=== PATIENT | male | born 1970 | race Two or more races ===

== ENCOUNTER 2016-10-12 21:35 | Emergency (ER) | payer MEDICAID ==
[2016-10-12] MEDS ORDERED: oxyCOD/ACETAMIN 5 MG/325 MG TABLET PO STA (22:03)
[2016-10-12] MEDS ORDERED: oxyCOD/ACETAMIN 5 MG/325 MG TABLET PO ONE (22:09)
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
[2016-10-12 23:05] VITALS: BP 147/84
== END 2016-10-12 23:05 | disposition home or self-care (01) ==
LOC: ED 21:35
DX: T23.201A Burn of second degree of right hand, unspecified site, initial encounter (principal); X10.2XXA Contact with fats and cooking oils, initial encounter; F17.200 Nicotine dependence, unspecified, uncomplicated
CPT/HCPCS: 16020; 99282; 99283; A9270

== ENCOUNTER 2018-05-08 20:22 | Emergency (ER) | payer MEDICAID ==
[2018-05-08 20:35] VITALS: BP 140/93
--- NOTE | 2018-05-08 20:41 | ED Physician Documentation ---
PD HPI CHEST PAIN - Stated complaint Stated Complaint: CP RT SIDE/NAUSEA - Chief complaint Chief Complaint: Cardiac - History obtained from History obtained from: Patient - History of Present Illness Timing - onset: Yesterday Timing - onset during: Light activity Timing - duration: Minutes Timing - details: Abrupt onset, Intermittant, Waxing and waning Pain level max: 8 Pain level now: 3 Quality: Pain Location: Right chest Radiation: Right upper extremity Improved by: Rest Worsened by: Exertion (some episodes at rest, others associated with light a ctivity. Of note, patient says the episodes yesterday were with exertion after he had been less active than usual over the past few weeks) Associated symptoms: No: Shortness of air, Diaphoresis, Nausea, Vomiting, Feeling faint / dizzy, General Weakness, Palpitations, Cough Similar symptoms before: Has not had sx before Recently seen: Not recently seen Review of Systems Constitutional: reports: Reviewed and negative Eyes: reports: Reviewed and negative Ears: reports: Reviewed and negative Nose: reports: Reviewed and negative Throat: reports: Reviewed and negative Cardiac: reports: Chest pain / pressure. denies: Palpitations, Pedal edema, Calf pain Respiratory: reports: Reviewed and negative GI: reports: Reviewed and negative : reports: Reviewed and negative Skin: reports: Reviewed and negative Musculoskeletal: reports: Reviewed and negative Neurologic: reports: Reviewed and negative PD PAST MEDICAL HISTORY - Past Medical History Past Medical History: No - Past Surgical History Past Surgical History: Yes General: Hiatal hernia repair - Present Medications Home Medications: Ambulatory Orders Medication Instructions Recorded Confirmed Amoxicillin/Potassium Clav 1 each PO BID #19 tablet 06/29/14 [Augmentin 875-125 Tablet] HYDROcod/ACETAM 5/325 [Vicodin 1 - 2 ea PO Q6H PRN #15 tablet 06/29/14 5/325] Ibuprofen [Motrin] 800 mg PO Q8H PRN #30 tablet 02/06/16 Penicillin V Potassium 500 mg PO Q6HR 10 Days tablet 02/06/16 Oxycodone HCl/Acetaminophen 1 - 2 each PO Q6H PRN #14 tablet 10/12/16 [Percocet 5-325 mg Tablet] - Allergies Allergies/Adverse Reactions: Allergies Allergy/AdvReac Type Severity Reaction Status Date / Time No Known Drug Allergies Allergy Verified 10/12/16 21:40 - Social History Does the pt smoke?: Yes Smoking Status: Current some day smoker Does the pt drink ETOH?: No Does the pt have substance abuse?: No - Immunizations Immunizations are current?: No Immunizations: TDAP >10years/unknown - POLST Patient has POLST: No PD ED PE NORMAL - Vitals Vital signs reviewed: Yes - General General: Alert and oriented X 3, No acute distress (NAD on my evaluation (lockstitch cup setter reports that during triage, patient was in obvious painful distress)), Well developed/nourished - HEENT HEENT: PERRL, EOMI - Neck Neck: Supple, no meningeal sign - Cardiac Cardiac: RRR, No murmur, No gallop, No rub - Respiratory Respiratory: No respiratory distress, Clear bilaterally - Abdomen Abdomen: Soft, Non tender - Back Back: No CVA TTP - Derm Derm: Normal color, Warm and dry - Extremities Extremities: No edema - Neuro Neuro: Alert and oriented X 3 Results - Vitals Vitals: Vital Signs - 24 hr 05/08/18 20:27 Temperature 37.2 C Heart Rate 100 Respiratory 18 Rate Blood Pressure 140/93 H O2 Saturation 98 Oxygen O2 Source Room air - EKG (time done) No standard instances Rate: Rate (enter#) (85) Rhythm: NSR, LAE [place]: Normal Intervals: Normal [place] QRS: LVH Ischemia: ST elevation c/w ischemia (V3, V4) Other comments: Other comments (RSR') - Labs Labs: Laboratory Tests 05/08/18 05/08/18 05/08/18 20:45 20:45 20:45 WBC 8.1 RBC 4.84 Hgb 14.6 Hct 44.2 MCV 91.4 MCH 30.3 MCHC 33.1 RDW 13.0 Plt Count 256 MPV 7.8 Neut # (Auto) 4.5 Lymph # (Auto) 2.7 [place] # (Auto) 0.7 Eos # (Auto) 0.1 Baso # (Auto) 0.0 Absolute Nucleated RBC 0.00 Nucleated RBC % 0.0 Sodium 137 Potassium 3.3 L Chloride 101 Carbon Dioxide 27 Anion Gap 9.0 BUN 19 Creatinine 1.0 Estimated GFR (MDRD) 80 L Glucose 116 H Calcium 8.8 Troponin I < 0.04 - Rads (name of study) chest xray Radiology: Prelim report reviewed, See rad report PD MEDICAL DECISION MAKING - ED course Complexity details: reviewed results, re-evaluated patient, considered differential, d/w patient, d/w family ED course: D/W Dr. Eason ([facility] ED), accepts transfer. Departure - Departure Disposition: 02 Transfer Acute Care Hosp Clinical Impression: STEMI (ST elevation myocardial infarction) Qualifiers: Involved coronary artery: unspecified coronary artery Qualified Code(s): I21.3 - ST elevation (STEMI) myocardial infarction of unspecified site Condition: Stable Discharge Date/Time: 05/08/18 21:33
[2018-05-08 20:57] LABS: BASOPHILS % (AUTO) 0.6 %; EOSINOPHILS # (AUTO) 0.1 10^3/uL (0.0-0.7); EOSINOPHILS % (AUTO) 1.7 %; HGB - HEMOGLOBIN 14.6 g/dL (14.0-18.0); LYMPHOCYTES # (AUTO) 2.7 10^3/uL (1.5-3.5); MEAN CORPUSCULAR HEMOGLOBIN 30.3 pg (27.0-31.0); MEAN CORPUSCULAR HGB CONC 33.1 g/dL (32.0-36.0); MEAN CORPUSCULAR VOLUME 91.4 fL (80.0-94.0); MEAN PLATELET VOLUME 7.8 fL (7.4-11.4); MONOCYTES # (AUTO) 0.7 10^3/uL (0.0-1.0); MONOCYTES % (AUTO) 9.3 %; NEUTROPHILS # (AUTO) 4.5 10^3/uL (1.5-6.6); NEUTROPHILS % (AUTO) 55.4 %; PLT - PLATELET COUNT 256 10^3/uL (130-450); RED BLOOD COUNT 4.84 10^6/uL (4.70-6.10); WHITE BLOOD COUNT 8.1 x10^3/uL (4.8-10.8)
[2018-05-08] MEDS ORDERED: NITROGLYCERIN SL 0.4 MG TABLET SL ONE (21:01)
[2018-05-08] MEDS ORDERED: METOPROLOL 5 MG/5 ML VIAL IVP STA (21:02)
[2018-05-08] MEDS ORDERED: ASPIRIN CHEW 81 MG TABLET ONE (21:02)
[2018-05-08 21:07] LABS: CALCIUM 8.8 mg/dL (8.5-10.3)
[2018-05-08] MEDS ORDERED: HEPARIN 5,000 UNIT/ML VIAL IVP STA (21:07)
[2018-05-08] MEDS ORDERED: HEPARIN 25000UNITS/500ML (D5W) 25,000 UNIT/500 ML BAG IV STA (21:07)
--- NOTE | 2018-05-08 21:14 | XRAY Report ---
Reason: chest pain Procedure Date: 05/08/2018 Accession Number: [id number] / [id number] Procedure: XR - Chest 1 View X-Ray CPT Code: 64237 FULL RESULT: EXAM: CHEST RADIOGRAPHY EXAM DATE: 05/08/2018 08:56 PM. CLINICAL HISTORY: Chest pain. COMPARISON: None. TECHNIQUE: 1 view. FINDINGS: Lungs/Pleura: No focal opacities evident. No pleural effusion. No pneumothorax. Mediastinum: Within exam limitations, the cardiomediastinal contour is normal. Other: Mild dextroscoliosis. IMPRESSION: Mild dextroscoliosis, otherwise unremarkable single view chest. RADIA
== END 2018-05-08 21:33 | disposition short-term general hospital (02) ==
LOC: ED 20:22
DX: I21.3 ST elevation (STEMI) myocardial infarction of unspecified site (principal); F17.200 Nicotine dependence, unspecified, uncomplicated
CPT/HCPCS: 36415; 71045; 80048; 84484; 85025; 93005; 96374; 96375; 99284; 99285; A9270

== ENCOUNTER 2018-05-08 21:16 | Outpatient (CLI) | payer MEDICAID | END 2018-05-08 21:17 | disposition short-term general hospital (02) | LOC: EMS 21:16 | PROVIDERS: ATTEND Surgery | DX: I21.3 ST elevation (STEMI) myocardial infarction of unspecified site (principal) | CPT/HCPCS: A0425; A0426 ==

== ENCOUNTER 2018-07-26 00:46 | Outpatient (CLI) | payer MEDICAID | END 2018-07-26 00:47 | disposition critical access hospital (66) | LOC: EMS 00:46 | PROVIDERS: ATTEND Surgery | DX: J39.2 Other diseases of pharynx (principal); R11.0 Nausea; R00.0 Tachycardia, unspecified | CPT/HCPCS: A0425; A0427; A0999 ==

== ENCOUNTER 2018-07-26 01:01 | Emergency (ER) | payer MEDICAID ==
--- NOTE | 2018-07-26 01:17 | ED Physician Documentation ---
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 He checked thermostat and found that the temperature was 76, and he felt improvement walking into another, cooler room. However, he then developed dry mouth and sensation of throat tightness and constriction. 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 Review of Systems Constitutional: reports: Sweats. denies: Fever, Chills Cardiac: denies: Chest pain / pressure, Palpitations, Pedal edema, Calf pain Respiratory: reports: Reviewed and negative GI: reports: Reviewed and negative Musculoskeletal: reports: Reviewed and negative Neurologic: reports: Reviewed and negative PD PAST MEDICAL HISTORY - Past Medical History Past Medical History: Yes Other Past Medical History: pericarditis, Brugada type II - Past Surgical History Past Surgical History: Yes General: Hiatal hernia repair - Present Medications Home Medications: Ambulatory Orders Medication Instructions Recorded Confirmed Amoxicillin/Potassium Clav 1 each PO BID #19 tablet 06/29/14 [Augmentin 875-125 Tablet] HYDROcod/ACETAM 5/325 [Vicodin 1 - 2 ea PO Q6H PRN #15 tablet 06/29/14 5/325] Ibuprofen [Motrin] 800 mg PO Q8H PRN #30 tablet 02/06/16 Penicillin V Potassium 500 mg PO Q6HR 10 Days tablet 02/06/16 Oxycodone HCl/Acetaminophen 1 - 2 each PO Q6H PRN #14 tablet 10/12/16 [Percocet 5-325 mg Tablet] - Allergies Allergies/Adverse Reactions: Allergies Allergy/AdvReac Type Severity Reaction Status Date / Time No Known Drug Allergies Allergy Verified 10/12/16 21:40 - Living Situation Living Situation: reports: With spouse/s.o. Living Arrangement: reports: At home - Social History Does the pt smoke?: Yes Smoking Status: Current some day smoker Does the pt drink ETOH?: No Does the pt have substance abuse?: No - Immunizations Immunizations are current?: No Immunizations: TDAP >10years/unknown - POLST Patient has POLST: No PD ED PE NORMAL - Vitals Vital signs reviewed: Yes - General General: Alert and oriented X 3, No acute distress, Well developed/nourished - HEENT HEENT: Moist mucous membranes - Neck Neck: Supple, no meningeal sign - Cardiac Cardiac: RRR, No murmur, No gallop, No rub - Respiratory Respiratory: No respiratory distress, Clear bilaterally - Abdomen Abdomen: Soft, Non tender - Derm Derm: Normal color, Warm and dry - Extremities Extremities: No edema - Neuro Neuro: Alert and oriented X 3 Results - Vitals Vitals: Vital Signs - 24 hr 07/26/18 07/26/18 07/26/18 01:03 01:18 01:33 Temperature 36 C L Heart Rate 109 H 117 H 77 Respiratory 16 15 10 L Rate Blood Pressure 155/90 H 155/90 H 143/79 H O2 Saturation 98 99 98 07/26/18 07/26/18 02:37 03:05 Temperature 36.5 C Heart Rate 85 73 Respiratory 21 19 Rate Blood Pressure 125/65 125/65 O2 Saturation 99 98 Oxygen O2 Source Room air - EKG (time done) No standard instances Rate: Rate (enter#) (119), Tachy Rhythm: NSR [place]: Normal Intervals: Normal [place] QRS: LVH Ischemia: ST depression (V4, V5), Other (RSR' V1, V2) - Labs Labs: Laboratory Tests 07/26/18 07/26/18 07/26/18 01:25 01:25 01:25 WBC 13.7 H RBC 4.65 L Hgb 14.0 Hct 41.4 L MCV 89.2 MCH 30.2 MCHC 33.8 RDW 13.2 Plt Count 209 MPV 8.0 Neut # (Auto) 10.7 H Lymph # (Auto) 1.8 [place] # (Auto) 1.2 H Eos # (Auto) 0.1 Baso # (Auto) 0.0 Absolute Nucleated RBC 0.01 Nucleated RBC % 0.0 D-Dimer Sodium 137 Potassium 2.9 L Chloride 107 Carbon Dioxide 21 Anion Gap 9.0 BUN 21 H Creatinine 1.0 Estimated GFR (MDRD) 80 L Glucose 164 H Calcium 9.1 Total Bilirubin 0.4 AST 24 ALT 19 Alkaline Phosphatase 70 Troponin I < 0.04 Total Protein 6.8 Albumin 4.2 Globulin 2.6 Albumin/Globulin Ratio 1.6 Lipase 32 07/26/18 01:25 WBC RBC Hgb Hct MCV MCH MCHC RDW Plt Count MPV Neut # (Auto) Lymph # (Auto) [place] # (Auto) Eos # (Auto) Baso # (Auto) Absolute Nucleated RBC Nucleated RBC % D-Dimer 204.5 Sodium Potassium Chloride Carbon Dioxide Anion Gap BUN Creatinine Estimated GFR (MDRD) Glucose Calcium Total Bilirubin AST ALT Alkaline Phosphatase Troponin I Total Protein Albumin Globulin Albumin/Globulin Ratio Lipase - Rads (name of study) chest xray Radiology: Prelim report reviewed, See rad report PD MEDICAL DECISION MAKING - ED course Complexity details: reviewed old records, reviewed results, re-evaluated patient, considered differential, d/w patient ED course: After tests resulted, reevaluated and he is in NAD. 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 Records from [facility] (when he was transferred from this ED in April) were faxed and reviewed by me, and these confirm the diagnoses (at that time) of pericarditis and Brugada type 2. Departure - Departure Disposition: 01 Home, Self Care Clinical Impression: Chest pain, Hypokalemia Condition: Good Instructions: ED Chest Pain Atypical Unkn Cause, ED Potassium Deficiency Comments: Contact your primary care provider to arrange for next available appointment Discharge Date/Time: 07/26/18 03:20
[2018-07-26 01:33] LABS: BASOPHILS % (AUTO) 0.3 %; EOSINOPHILS # (AUTO) 0.1 10^3/uL (0.0-0.7); EOSINOPHILS % (AUTO) 0.4 %; LYMPHOCYTES # (AUTO) 1.8 10^3/uL (1.5-3.5); LYMPHOCYTES % (AUTO) 12.8 %; MEAN CORPUSCULAR HEMOGLOBIN 30.2 pg (27.0-31.0); MEAN CORPUSCULAR HGB CONC 33.8 g/dL (32.0-36.0); MEAN CORPUSCULAR VOLUME 89.2 fL (80.0-94.0); MONOCYTES # (AUTO) 1.2 10^3/uL (0.0-1.0); MONOCYTES % (AUTO) 8.6 %; NEUTROPHILS # (AUTO) 10.7 10^3/uL (1.5-6.6); NEUTROPHILS % (AUTO) 77.9 %; PLT - PLATELET COUNT 209 10^3/uL (130-450); RED BLOOD COUNT 4.65 10^6/uL (4.70-6.10); RED CELL DISTRIBUTION WIDTH 13.2 % (12.0-15.0); WHITE BLOOD COUNT 13.7 x10^3/uL (4.8-10.8)
[2018-07-26 01:46] LABS: ALBUMIN 4.2 g/dL (3.2-5.5); ALBUMIN/GLOBULIN RATIO 1.6 (1.0-2.2); BILIRUBIN,TOTAL 0.4 mg/dL (0.2-1.0); CALCIUM 9.1 mg/dL (8.5-10.3); TOTAL PROTEIN 6.8 g/dL (6.7-8.2)
--- NOTE | 2018-07-26 02:12 | XRAY Report ---
Reason: chest pain Procedure Date: 07/26/2018 Accession Number: [id number] / [id number] Procedure: XR - Chest 2 View X-Ray CPT Code: 64774 FULL RESULT: EXAM: CHEST RADIOGRAPHY EXAM DATE: 07/26/2018 01:55 AM. CLINICAL HISTORY: Chest pain. Throat tightness, sudden onset sweating. COMPARISON: CHEST 1 VIEW 05/08/2018 8:43 PM. TECHNIQUE: 2 views. FINDINGS: Lungs/Pleura: Small reticular and nodular right upper lobe opacity is noted. This is subtle. No consolidation. No effusion or pneumothorax. Mediastinum: Heart and mediastinal contours are unremarkable. Other: None. IMPRESSION: Subtle right upper lobe reticular and nodular opacity, possibly early infection. RADIA
[2018-07-26 02:45] VITALS: BP 125/65
[2018-07-26] MEDS ORDERED: POTASSIUM CHLORIDE 20 MEQ TABLET PO STA (03:14)
== END 2018-07-26 03:20 | disposition home or self-care (01) ==
LOC: EDUNIT# → ED 01:01
DX: I31.9 Disease of pericardium, unspecified (principal); Z79.891 Long term (current) use of opiate analgesic; F17.200 Nicotine dependence, unspecified, uncomplicated; R07.9 Chest pain, unspecified; E87.6 Hypokalemia
CPT/HCPCS: 36415; 71046; 80053; 83690; 84484; 85025; 85379; 93005; 99283; 99284; A9270

== ENCOUNTER 2018-07-30 10:36 | Outpatient (CLI) | payer MEDICAID ==
[2018-07-30 12:37] LABS: BASOPHILS % (AUTO) 0.3 %; EOSINOPHILS # (AUTO) 0.1 10^3/uL (0.0-0.7); EOSINOPHILS % (AUTO) 0.9 %; HGB - HEMOGLOBIN 14.9 g/dL (14.0-18.0); LYMPHOCYTES # (AUTO) 2.2 10^3/uL (1.5-3.5); LYMPHOCYTES % (AUTO) 29.1 %; MEAN CORPUSCULAR HEMOGLOBIN 29.9 pg (27.0-31.0); MEAN CORPUSCULAR HGB CONC 33.3 g/dL (32.0-36.0); MEAN CORPUSCULAR VOLUME 89.9 fL (80.0-94.0); MEAN PLATELET VOLUME 8.8 fL (7.4-11.4); MONOCYTES # (AUTO) 0.8 10^3/uL (0.0-1.0); MONOCYTES % (AUTO) 10.6 %; NEUTROPHILS # (AUTO) 4.4 10^3/uL (1.5-6.6); NEUTROPHILS % (AUTO) 59.1 %; PLT - PLATELET COUNT 210 10^3/uL (130-450); RED BLOOD COUNT 4.99 10^6/uL (4.70-6.10); RED CELL DISTRIBUTION WIDTH 12.7 % (12.0-15.0); WHITE BLOOD COUNT 7.5 x10^3/uL (4.8-10.8)
[2018-07-30 13:11] LABS: ALBUMIN 3.9 g/dL (3.2-5.5); ALBUMIN/GLOBULIN RATIO 1.5 (1.0-2.2); ALKALINE PHOSPHATASE 57 IU/L (42-121); ALT ALANINE AMINOTRANSFERASE 20 IU/L (10-60); AST ASPARTATE AMINOTRANSFERASE 22 IU/L (10-42); BILIRUBIN,TOTAL 0.7 mg/dL (0.2-1.0); BUN - BLOOD UREA NITROGEN 21 mg/dL (6-20); CALCIUM 8.9 mg/dL (8.5-10.3); CARBON DIOXIDE - CO2 25 mmol/L (21-32); CHLORIDE 103 mmol/L (101-111); CHOL/HDL RATIO 3.6 (<5.0); CHOLESTEROL 149 mg/dL; CREATININE 1.1 mg/dL (0.6-1.2); GFR - MDRD 72 (>89); GLUCOSE 106 mg/dL (70-100); HDL CHOLESTEROL 41 mg/dL; SODIUM 138 mmol/L (135-145); TOTAL PROTEIN 6.5 g/dL (6.7-8.2)
[2018-07-30 13:38] LABS: LDL CHOLESTEROL,DIRECT 97 mg/dL; LDLD/HDL RATIO 2.4 (<3.6)
== END 2018-07-30 23:59 | disposition home or self-care (01) ==
LOC: LAB.N 10:36
PROVIDERS: ATTEND Nurse Practitioner Gerontology
DX: Z13.9 Encounter for screening, unspecified (principal)
CPT/HCPCS: 36415; 80053; 80061; 83721; 85025

== ENCOUNTER 2018-09-05 08:00 | Outpatient (CLI) | payer MEDICAID ==
[2018-09-05 18:29] LABS: BASOPHILS % (AUTO) 0.2 %; EOSINOPHILS % (AUTO) 0.1 %; HGB - HEMOGLOBIN 14.4 g/dL (14.0-18.0); LYMPHOCYTES # (AUTO) 1.3 10^3/uL (1.5-3.5); LYMPHOCYTES % (AUTO) 14.1 %; MEAN CORPUSCULAR HEMOGLOBIN 29.8 pg (27.0-31.0); MEAN CORPUSCULAR HGB CONC 32.7 g/dL (32.0-36.0); MEAN CORPUSCULAR VOLUME 91.1 fL (80.0-94.0); MEAN PLATELET VOLUME 10.2 fL (7.4-11.4); MONOCYTES # (AUTO) 0.6 10^3/uL (0.0-1.0); MONOCYTES % (AUTO) 6.2 %; NEUTROPHILS # (AUTO) 7.1 10^3/uL (1.5-6.6); NEUTROPHILS % (AUTO) 79.1 %; PLT - PLATELET COUNT 213 10^3/uL (130-450); RED BLOOD COUNT 4.83 10^6/uL (4.70-6.10); RED CELL DISTRIBUTION WIDTH 12.7 % (12.0-15.0)
[2018-09-05 18:49] LABS: ALBUMIN 4.5 g/dL (3.2-5.5); ALBUMIN/GLOBULIN RATIO 1.6 (1.0-2.2); ALKALINE PHOSPHATASE 64 IU/L (42-121); ALT ALANINE AMINOTRANSFERASE 29 IU/L (10-60); AST ASPARTATE AMINOTRANSFERASE 28 IU/L (10-42); BILIRUBIN,TOTAL 0.7 mg/dL (0.2-1.0); BUN - BLOOD UREA NITROGEN 16 mg/dL (6-20); CALCIUM 9.5 mg/dL (8.5-10.3); CARBON DIOXIDE - CO2 25 mmol/L (21-32); CHLORIDE 106 mmol/L (101-111); CREATININE 0.9 mg/dL (0.6-1.2); GFR - MDRD 91 (>89); GLUCOSE 106 mg/dL (70-100); MAGNESIUM 1.9 mg/dL (1.7-2.8); SODIUM 140 mmol/L (135-145); TOTAL PROTEIN 7.3 g/dL (6.7-8.2)
[2018-09-05 19:24] LABS: CRP - C-REACTIVE PROTEIN < 1.0 mg/dL (0-1.0)
== END 2018-09-05 23:59 | disposition home or self-care (01) ==
LOC: LAB.N 08:00
PROVIDERS: ATTEND Physician Assistant Medical
DX: R07.9 Chest pain, unspecified (principal)
CPT/HCPCS: 36415; 80053; 83735; 84403; 84484; 85025; 85651; 86140

== ENCOUNTER 2018-09-05 13:45 | Outpatient (CLI) | payer MEDICAID ==
--- NOTE | 2018-09-05 14:17 | XRAY Report ---
Reason: chest pain Procedure Date: 09/05/2018 Accession Number: [id number] / [id number] Procedure: XRN - Chest 2 View X-Ray CPT Code: 02495 FULL RESULT: EXAM: CHEST RADIOGRAPHY EXAM DATE: 09/05/2018 01:58 PM. CLINICAL HISTORY: Chest pain. COMPARISON: CHEST 2 VIEW 07/26/2018 1:46 AM. TECHNIQUE: 2 views. FINDINGS: Lungs/Pleura: The lateral view demonstrates increasing consolidation in the retrocardiac region, a new finding. No pleural effusion or pneumothorax. Mediastinum: Heart and mediastinal contours are unremarkable. Other: None. IMPRESSION: Compared to the previous radiograph, the left retrocardiac region demonstrates new subtle consolidation. RADIA The call report notification system was initiated by Dr. Rehan Patton at 02:15 PM on 09/05/2018. ADDENDUM: 09/05/18 14:41 The above call report findings were discussed with the nurse to Tasha Marsh by Dr. Rehan Patton at 02:45 PM on 09/05/2018.
== END 2018-09-05 13:46 | disposition home or self-care (01) ==
LOC: DI.N 13:45
PROVIDERS: ATTEND Physician Assistant Medical
DX: R07.9 Chest pain, unspecified (principal); J18.1 Lobar pneumonia, unspecified organism
CPT/HCPCS: 36415; 71046; 80053; 83735; 84403; 84484; 85025; 85651; 86140

== ENCOUNTER → 2018-09-05 | Outpatient (CLI) | payer MEDICAID | LOC: RT.N 13:00 | PROVIDERS: ATTEND Physician Assistant Medical | DX: R07.9 Chest pain, unspecified (principal) | CPT/HCPCS: 93005 ==

== ENCOUNTER 2018-12-14 12:15 | Emergency (ER) | payer SELFPAY ==
[2018-12-14 12:54] LABS: BASOPHILS % (AUTO) 0.3 %; EOSINOPHILS % (AUTO) 0.1 %; HGB - HEMOGLOBIN 15.9 g/dL (14.0-18.0); LYMPHOCYTES # (AUTO) 1.3 10^3/uL (1.5-3.5); LYMPHOCYTES % (AUTO) 11.1 %; MEAN CORPUSCULAR HEMOGLOBIN 30.6 pg (27.0-31.0); MEAN CORPUSCULAR HGB CONC 33.9 g/dL (32.0-36.0); MEAN CORPUSCULAR VOLUME 90.2 fL (80.0-94.0); MEAN PLATELET VOLUME 9.8 fL (7.4-11.4); MONOCYTES # (AUTO) 0.8 10^3/uL (0.0-1.0); MONOCYTES % (AUTO) 6.4 %; NEUTROPHILS # (AUTO) 9.6 10^3/uL (1.5-6.6); NEUTROPHILS % (AUTO) 81.7 %; PLT - PLATELET COUNT 231 10^3/uL (130-450); RED CELL DISTRIBUTION WIDTH 12.3 % (12.0-15.0); WHITE BLOOD COUNT 11.7 x10^3/uL (4.8-10.8)
--- NOTE | 2018-12-14 13:02 | ED Physician Documentation ---
PD HPI CHEST PAIN - Stated complaint Stated Complaint: CHEST PX - Chief complaint Chief Complaint: Cardiac - History obtained from History obtained from: Family - History of Present Illness Timing - onset: How many days ago (3) Timing - onset during: Rest Timing - duration: Days (3) Timing - details: Still present, Waxing and waning Quality: Aching, Indigestion. No: Pressure, Tightness Location: Epigastric Radiation: Back Improved by: Antacids (briefly) Worsened by: Eating (spicy food) Associated symptoms: No: Shortness of air, Nausea, Feeling faint / dizzy, Palpitations, Cough Similar symptoms before: Diagnosis (gastritis) Recently seen: Not recently seen Review of Systems Constitutional: denies: Fever, Chills Nose: denies: Rhinorrhea / runny nose, Congestion Throat: denies: Sore throat Cardiac: reports: Chest pain / pressure. denies: Palpitations Respiratory: denies: Cough GI: reports: Abdominal Pain. denies: Nausea, Vomiting, Constipation, Diarrhea, Bloody / black stool Musculoskeletal: reports: Back pain. denies: Neck pain PD PAST MEDICAL HISTORY - Past Medical History Past Medical History: Yes Cardiovascular: Other Psych: Anxiety Other Past Medical History: myocarditis - Past Surgical History Past Surgical History: Yes General: Hiatal hernia repair - Present Medications Home Medications: Ambulatory Orders Medication Instructions Recorded Confirmed Amoxicillin/Potassium Clav 1 each PO BID #19 tablet 06/29/14 [Augmentin 875-125 Tablet] HYDROcod/ACETAM 5/325 [Vicodin 1 - 2 ea PO Q6H PRN #15 tablet 06/29/14 5/325] Ibuprofen [Motrin] 800 mg PO Q8H PRN #30 tablet 02/06/16 Penicillin V Potassium 500 mg PO Q6HR 10 Days tablet 02/06/16 Oxycodone HCl/Acetaminophen 1 - 2 each PO Q6H PRN #14 tablet 10/12/16 [Percocet 5-325 mg Tablet] Lidocaine Viscous 2% [Xylocaine 5 ml PO Q4H PRN #100 ml 12/14/18 Viscous 2%] Omeprazole 20 mg PO DAILY #30 capsule. 12/14/18 Sucralfate [Carafate] 1 gm PO TID #20 tablet 12/14/18 - Allergies Allergies/Adverse Reactions: Allergies Allergy/AdvReac Type Severity Reaction Status Date / Time No Known Drug Allergies Allergy Verified 10/12/16 21:40 - Social History Does the pt smoke?: Yes Smoking Status: Current every day smoker Does the pt drink ETOH?: No Does the pt have substance abuse?: No - Immunizations Immunizations are current?: No Immunizations: TDAP >10years/unknown - POLST Patient has POLST: No PD ED PE NORMAL - Vitals Vital signs reviewed: Yes - General General: Alert and oriented X 3, No acute distress, Well developed/nourished - HEENT HEENT: Pharynx benign - Neck Neck: Supple, no meningeal sign, No adenopathy - Cardiac Cardiac: RRR, No murmur - Respiratory Respiratory: Clear bilaterally - Abdomen Abdomen: Normal bowel sounds, Soft, Non distended, No organomegaly, Other (some epigastric tenderness without guarding nor rebound) - Derm Derm: Normal color, Warm and dry - Neuro Neuro: Alert and oriented X 3, No motor deficit, Normal speech Results - Vitals Vitals: Vital Signs - 24 hr 12/14/18 12/14/18 12/14/18 12:20 12:39 13:53 Temperature 36.8 C Heart Rate 73 78 64 Respiratory 16 19 10 L Rate Blood Pressure 138/89 H 126/80 O2 Saturation 98 99 98 Oxygen O2 Source Room air - EKG (time done) 12:18 Rate: Rate (enter#) (78) Rhythm: NSR [place]: Normal Intervals: Normal [place] QRS: Normal Ischemia: Normal ST segments. No: ST elevation c/w ischemia, ST depression - Labs Labs: Laboratory Tests 12/14/18 12/14/18 12/14/18 12:50 12:50 12:50 WBC 11.7 H RBC 5.20 Hgb 15.9 Hct 46.9 MCV 90.2 MCH 30.6 MCHC 33.9 RDW 12.3 Plt Count 231 MPV 9.8 Neut # (Auto) 9.6 H Lymph # (Auto) 1.3 L [place] # (Auto) 0.8 Eos # (Auto) 0.0 Baso # (Auto) 0.0 Absolute Nucleated RBC 0.00 Nucleated RBC % 0.0 Sodium 139 Potassium 4.3 Chloride 106 Carbon Dioxide 23 Anion Gap 10.0 BUN 22 H Creatinine 1.0 Estimated GFR (MDRD) 80 L Glucose 115 H Calcium 9.4 Total Bilirubin 0.8 AST 20 ALT 28 Alkaline Phosphatase 63 Troponin I High Sens < 2.3 L Total Protein 7.5 Albumin 4.4 Globulin 3.1 Albumin/Globulin Ratio 1.4 Lipase 24 - Rads (name of study) chest xray Radiology: Prelim report reviewed (normal), See rad report PD MEDICAL DECISION MAKING - ED course Complexity details: reviewed results, re-evaluated patient (improved with GI cocktail), considered differential, d/w patient Departure - Departure Disposition: 01 Home, Self Care Clinical Impression: Acute epigastric pain Condition: Stable Record reviewed to determine appropriate education?: Yes Instructions: ED PUD Vs Gastritis Prescriptions: Lidocaine Viscous 2% [Xylocaine Viscous 2%] 5 ml PO Q4H PRN #100 ml PRN Reason: Pain Omeprazole 20 mg PO DAILY #30 capsule. Sucralfate [Carafate] 1 gm PO TID #20 tablet Comments: No spicy foods or alcohol or caffeine. Stay well-hydrated. Omeprazole daily for 1 to 2 months. Add sucralfate 3 times a day for the next week to coat the stomach. Add lidocaine with some antacid such as Maalox or Mylanta every 4-6 hours if needed for stomach pain. Use Tylenol if needed for pain as well. No anti-inflammatories such as ibuprofen or naproxen. Bring a stool sample back to the lab or your primary care office to test for a possible bacterial infection in the stomach that may be keeping this from healing up well. Follow-up with your primary care in about a week, call for an appointment. No signs of heart or lung problems going on today. Discharge Date/Time: 12/14/18 14:04
[2018-12-14 13:11] LABS: ALBUMIN 4.4 g/dL (3.2-5.5); ALBUMIN/GLOBULIN RATIO 1.4 (1.0-2.2); BILIRUBIN,TOTAL 0.8 mg/dL (0.2-1.0); CALCIUM 9.4 mg/dL (8.5-10.3); TOTAL PROTEIN 7.5 g/dL (6.7-8.2)
--- NOTE | 2018-12-14 13:13 | XRAY Report ---
Reason: cp Procedure Date: 12/14/2018 Accession Number: [id number] / [id number] Procedure: XR - Chest 1 View X-Ray CPT Code: 40166 FULL RESULT: EXAM: CHEST RADIOGRAPHY EXAM DATE: 12/14/2018 12:49 PM. CLINICAL HISTORY: Midsternal chest pain. Severe acid reflux. COMPARISON: CHEST 2 VIEW 09/05/2018 2:05 PM. TECHNIQUE: 1 view. FINDINGS: Lungs/Pleura: No focal opacities evident. No pleural effusion. No pneumothorax. Mediastinum: Within exam limitations, the cardiomediastinal contour is normal. Other: None. IMPRESSION: Normal single view chest. RADIA
[2018-12-14] MEDS ORDERED: LIDOCAINE VISCOUS 2% 15 ML UDC MM STA (13:43)
[2018-12-14] MEDS ORDERED: MAG HYDROX/AL HYDROX/SIMETH 30 ML UDC PO STA (13:43)
[2018-12-14] MEDS ORDERED: FAMOTIDINE 20 MG TABLET PO STA (13:43)
[2018-12-14] MEDS ORDERED: ACETAMINOPHEN 325 MG TABLET PO STA (13:43)
[2018-12-14 13:53] VITALS: BP 126/80
== END 2018-12-14 14:04 | disposition home or self-care (01) ==
LOC: ED 12:15
DX: R10.13 Epigastric pain (principal); F17.200 Nicotine dependence, unspecified, uncomplicated
CPT/HCPCS: 36415; 71045; 80053; 83690; 84484; 85025; 93005; 99284; A9270

== ENCOUNTER 2019-02-13 12:53 | Emergency (ER) | payer SELFPAY ==
--- NOTE | 2019-02-13 13:04 | ED Physician Documentation ---
PD HPI CHEST PAIN - Stated complaint Stated Complaint: CP - History obtained from History obtained from: Patient - History of Present Illness Timing - onset: How many hours ago (few), Today Timing - onset during: Rest Timing - duration: Hours (few) Timing - details: Abrupt onset, Still present, Waxing and waning Quality: Aching, Sharp, Pain Location: Right chest Radiation: Back Improved by: No: Rest Worsened by: Inspiration, Movement. No: Eating, Palpation Associated symptoms: Shortness of air. No: Nausea, Vomiting, Feeling faint / dizzy, Palpitations Similar symptoms before: No diagnosis (He has had episodic chest pain on both left and right with prior evaluations including x-ray EKG and troponin tests. He states he has had an ultrasound of the heart and another facility with an episode. No known heart disease. Has been diagnosed musculoskeletal in the past.) Recently seen: Clinic (He has had problems with stomach pains and alter-like symptoms. He had seen a spreader operator automatic recently. He has had endoscopy that did not show any obvious ulcers according to the patient. There is question if he tested positive for H. pylori on a call he had gotten from the GI clinic. He will be calling back to clarify) Review of Systems Constitutional: denies: Fever, Chills Nose: denies: Rhinorrhea / runny nose, Congestion Throat: denies: Sore throat Respiratory: denies: Cough PD PAST MEDICAL HISTORY - Past Medical History Cardiovascular: None, Other Respiratory: None Neuro: None GI: Other (evaluation recently for upper abd pain, possible gastritis) Psych: Anxiety - Past Surgical History Past Surgical History: Yes General: Hiatal hernia repair - Present Medications Home Medications: Ambulatory Orders Medication Instructions Recorded Confirmed Sucralfate [Carafate] 1 gm PO TID #20 tablet 12/14/18 Acetaminophen [Tylenol] 650 mg PO Q6H PRN #30 tab 02/13/19 Omeprazole 20 mg PO BID 02/13/19 Tizanidine HCl 4 mg PO TID PRN #25 capsule 02/13/19 Tramadol HCl 50 mg PO Q6H PRN #15 tablet 02/13/19 - Allergies Allergies/Adverse Reactions: Allergies Allergy/AdvReac Type Severity Reaction Status Date / Time No Known Drug Allergies Allergy Verified 02/13/19 13:13 - Social History Does the pt smoke?: Yes Smoking Status: Current every day smoker Does the pt drink ETOH?: No Does the pt have substance abuse?: No - Immunizations Immunizations are current?: No Immunizations: TDAP >10years/unknown - POLST Patient has POLST: No PD ED PE NORMAL - Vitals Vital signs reviewed: Yes - General General: Alert and oriented X 3, No acute distress, Well developed/nourished - HEENT HEENT: Moist mucous membranes, Pharynx benign - Neck Neck: Supple, no meningeal sign, No adenopathy - Cardiac Cardiac: RRR, No murmur - Respiratory Respiratory: Clear bilaterally, Other (no chestwall tenderness) - Abdomen Abdomen: Normal bowel sounds, Soft, Non tender, Non distended, No organomegaly - Derm Derm: Normal color, Warm and dry - Extremities Extremities: No tenderness to palpate, Normal ROM s pain, No edema, No calf tenderness / cord - Neuro Neuro: Alert and oriented X 3, No motor deficit, Normal speech Results - Vitals Vitals: Vital Signs - 24 hr 02/13/19 02/13/19 02/13/19 14:36 16:00 16:18 Heart Rate 53 L 54 L Respiratory 16 14 Rate Blood Pressure 117/79 111/74 O2 Saturation 99 98 Oxygen O2 Source Room air - EKG (time done) 1300 Rate: Rate (enter#) (70) Rhythm: NSR [place]: Normal Intervals: Normal DE QRS: Normal Ischemia: Normal ST segments, ST elevation c/w repol. No: ST elevation c/w is chemia, ST depression, T wave inversion - Labs Labs: Laboratory Tests 02/13/19 02/13/19 02/13/19 13:51 13:51 13:51 WBC 8.3 RBC 5.05 Hgb 15.4 Hct 46.6 MCV 92.3 MCH 30.5 MCHC 33.0 RDW 12.4 Plt Count 215 MPV 9.7 Neut # (Auto) 6.3 Lymph # (Auto) 1.4 L Barnes # (Auto) 0.7 Eos # (Auto) 0.0 Baso # (Auto) 0.0 Absolute Nucleated RBC 0.00 Nucleated RBC % 0.0 Sodium 138 Potassium 4.2 Chloride 102 Carbon Dioxide 28 Anion Gap 8.0 BUN 16 Creatinine 0.9 Estimated GFR (MDRD) 90 Glucose 113 H Calcium 9.1 Total Bilirubin 0.8 AST 19 ALT 27 Alkaline Phosphatase 58 Troponin I High Sens < 2.3 L Total Protein 7.3 Albumin 4.4 Globulin 2.9 Albumin/Globulin Ratio 1.5 Lipase 23 PD MEDICAL DECISION MAKING - ED course Complexity details: reviewed old records, reviewed results (No signs of acute heart cause.), considered differential (Sounds are muscular in character being breathing and movement triggered. She has had prior ER visits for chest pain episodes with negative evaluation on those. Will check EKG x-ray and lab tests.), d/w patient Departure - Departure Disposition: Home, Self Care Clinical Impression: Chest pain Qualifiers: Chest pain type: precordial pain Qualified Code(s): R07.2 - Precordial pain Condition: Stable Record reviewed to determine appropriate education?: Yes Instructions: ED Strain Chest Wall Follow-Up: Bethany Peacock ARNP [Primary Care Provider] - Prescriptions: Acetaminophen [Tylenol] 650 mg PO Q6H PRN #30 tab PRN Reason: Pain Tizanidine HCl 4 mg PO TID PRN #25 capsule PRN Reason: Spasms Tramadol HCl 50 mg PO Q6H PRN #15 tablet PRN Reason: Pain Comments: There is again no signs of heart or lung problems based on your blood test x-ray and EKG. Presume this is a muscular pain in the chest wall. Use Tylenol 3 or 4 times a day regularly for the next week. Tizanidine muscle relaxant if needed for spasms or stiffness. Add tramadol if needed for pain. Avoid anti-inflammatories such as ibuprofen or naproxen due to your stomach. Continue your usual stomach medicines of Prilosec. Add antacid if needed. Follow-up with your primary care Saturday as planned. Discharge Date/Time: 02/13/19 16:18
[2019-02-13] MEDS ORDERED: LIDOCAINE VISCOUS 2% 15 ML UDC MM STA (13:42)
[2019-02-13] MEDS ORDERED: HYDROcod/ACETAM 5/325 MG TABLET PO STA (13:42)
[2019-02-13] MEDS ORDERED: MAG HYDROX/AL HYDROX/SIMETH 30 ML UDC PO STA (13:42)
[2019-02-13 14:01] LABS: BASOPHILS % (AUTO) 0.4 %; EOSINOPHILS % (AUTO) 0.1 %; HGB - HEMOGLOBIN 15.4 g/dL (14.0-18.0); LYMPHOCYTES # (AUTO) 1.4 10^3/uL (1.5-3.5); LYMPHOCYTES % (AUTO) 16.3 %; MEAN CORPUSCULAR HEMOGLOBIN 30.5 pg (27.0-31.0); MEAN CORPUSCULAR VOLUME 92.3 fL (80.0-94.0); MEAN PLATELET VOLUME 9.7 fL (7.4-11.4); MONOCYTES # (AUTO) 0.7 10^3/uL (0.0-1.0); MONOCYTES % (AUTO) 7.8 %; NEUTROPHILS # (AUTO) 6.3 10^3/uL (1.5-6.6); PLT - PLATELET COUNT 215 10^3/uL (130-450); RED BLOOD COUNT 5.05 10^6/uL (4.70-6.10); RED CELL DISTRIBUTION WIDTH 12.4 % (12.0-15.0); WHITE BLOOD COUNT 8.3 x10^3/uL (4.8-10.8)
[2019-02-13 14:10] LABS: ALBUMIN 4.4 g/dL (3.2-5.5); ALBUMIN/GLOBULIN RATIO 1.5 (1.0-2.2); BILIRUBIN,TOTAL 0.8 mg/dL (0.2-1.0); CALCIUM 9.1 mg/dL (8.5-10.3); CREATININE 0.9 mg/dL (0.6-1.2); TOTAL PROTEIN 7.3 g/dL (6.7-8.2)
--- NOTE | 2019-02-13 14:53 | XRAY Report ---
Reason: dyspnea/ cough Procedure Date: 02/13/2019 Accession Number: [id number] / [id number] Procedure: XR - Chest 2 View X-Ray CPT Code: 41837 Final Report FULL RESULT: EXAM: CHEST RADIOGRAPHY EXAM DATE: 02/13/2019 02:44 PM. CLINICAL HISTORY: Dyspnea/ cough. COMPARISON: CHEST 1 VIEW 12/14/2018 12:29 PM. TECHNIQUE: 2 views. FINDINGS: Lungs/Pleura: No focal opacities evident. No pleural effusion. No pneumothorax. Normal volumes. Mediastinum: Heart and mediastinal contours are unremarkable. Other: None. IMPRESSION: Normal 2-view chest radiography. RADIA
[2019-02-13 16:22] VITALS: BP 111/74
== END 2019-02-13 16:18 | disposition home or self-care (01) ==
LOC: ED 12:53
DX: R07.2 Precordial pain (principal); F17.200 Nicotine dependence, unspecified, uncomplicated
CPT/HCPCS: 36415; 71046; 80053; 83690; 84484; 85025; 93005; 99284; A9270

== ENCOUNTER 2019-03-30 11:32 | Emergency (ER) | payer BC ==
[2019-03-30 12:05] LABS: BASOPHILS # (AUTO) 0.1 10^3/uL (0.0-0.1); BASOPHILS % (AUTO) 0.3 %; EOSINOPHILS % (AUTO) 0.1 %; HGB - HEMOGLOBIN 16.1 g/dL (14.0-18.0); LYMPHOCYTES # (AUTO) 0.3 10^3/uL (1.5-3.5); LYMPHOCYTES % (AUTO) 2.1 %; MEAN CORPUSCULAR HEMOGLOBIN 30.5 pg (27.0-31.0); MEAN CORPUSCULAR HGB CONC 33.1 g/dL (32.0-36.0); MEAN CORPUSCULAR VOLUME 92.2 fL (80.0-94.0); MEAN PLATELET VOLUME 9.5 fL (7.4-11.4); MONOCYTES # (AUTO) 0.7 10^3/uL (0.0-1.0); MONOCYTES % (AUTO) 4.1 %; NEUTROPHILS # (AUTO) 14.8 10^3/uL (1.5-6.6); PLT - PLATELET COUNT 213 10^3/uL (130-450); RED BLOOD COUNT 5.28 10^6/uL (4.70-6.10); RED CELL DISTRIBUTION WIDTH 12.5 % (12.0-15.0); WHITE BLOOD COUNT 15.9 x10^3/uL (4.8-10.8)
[2019-03-30 12:18] LABS: ALBUMIN 4.6 g/dL (3.2-5.5); ALBUMIN/GLOBULIN RATIO 1.6 (1.0-2.2); BILIRUBIN,TOTAL 0.6 mg/dL (0.2-1.0); CALCIUM 8.8 mg/dL (8.5-10.3); CREATININE 1.1 mg/dL (0.6-1.2); TOTAL PROTEIN 7.5 g/dL (6.7-8.2)
[2019-03-30] MEDS ORDERED: SODIUM CHLORIDE 0.9% 1,000 ML IV ONE (12:59)
[2019-03-30] MEDS ORDERED: HYDROmorphone 1 MG/ML CARPUJECT IVP STA (12:59)
[2019-03-30] MEDS ORDERED: ONDANSETRON 4 MG/2 ML VIAL IVP STA (12:59)
--- NOTE | 2019-03-30 13:05 | ED Physician Documentation ---
PD HPI ABD PAIN - Stated complaint Stated Complaint: ABD PX - Chief complaint Chief Complaint: Abd Pain - History obtained from History obtained from: Patient, Family - History of Present Illness Timing - onset: Yesterday Timing - duration: Days (2) Timing - details: Gradual onset, Constant Pain level max: 8 Pain level now: 8 Quality: Aching, Pain Location: RUQ Radiation: No: Chest, , Lower back, Left flank, Left shoulder, Right flank, Right shoulder, Upper back Improved by: Laying still Worsened by: Moving, Palpation Associated symptoms: Nausea, Vomiting. No: Fever, Hematemesis, Diarrhea, Constipation, Melena, Hematochezia, Dysuria, Hematuria Recently seen: Clinic (sent from clinic) - Additional information Additional information: RUQ abd pain intermittent x 1 month. constant since last night. Review of Systems Ten Systems: 10 systems reviewed and negative Constitutional: denies: Fever, Chills Respiratory: denies: Cough GI: reports: Nausea, Vomiting. denies: Diarrhea, Hematemesis, Bloody / black stool : denies: Dysuria Skin: denies: Rash Musculoskeletal: denies: Neck pain, Back pain Neurologic: denies: Headache PD PAST MEDICAL HISTORY - Past Medical History Past Medical History: Yes Cardiovascular: None Respiratory: None Neuro: None GI: Hiatal hernia Psych: Anxiety - Past Surgical History Past Surgical History: Yes General: Hiatal hernia repair - Present Medications Home Medications: Ambulatory Orders Medication Instructions Recorded Confirmed Sucralfate [Carafate] 1 gm PO TID #20 tablet 12/14/18 Acetaminophen [Tylenol] 650 mg PO Q6H PRN #30 tab 02/13/19 Omeprazole 20 mg PO BID 02/13/19 Tizanidine HCl 4 mg PO TID PRN #25 capsule 02/13/19 Tramadol HCl 50 mg PO Q6H PRN #15 tablet 02/13/19 Esomeprazole Magnesium [Nexium] 40 mg PO DAILY #30 capsule. 03/30/19 Oxycodone HCl/Acetaminophen 1 - 2 each PO Q6H PRN #14 tablet 03/30/19 [Percocet 5-325 mg Tablet] Sucralfate [Carafate] 1 gm PO ACHS #60 tablet 03/30/19 - Allergies Allergies/Adverse Reactions: Allergies Allergy/AdvReac Type Severity Reaction Status Date / Time No Known Drug Allergies Allergy Verified 03/30/19 11:39 - Social History Does the pt smoke?: No Smoking Status: Former smoker Does the pt drink ETOH?: No Does the pt have substance abuse?: No - Immunizations Immunizations are current?: No Immunizations: TDAP >10years/unknown - POLST Patient has POLST: No PD ED PE NORMAL - Vitals Vital signs reviewed: Yes - General General: Alert and oriented X 3, No acute distress, Well developed/nourished - HEENT HEENT: PERRL, Moist mucous membranes - Neck Neck: Supple, no meningeal sign - Cardiac Cardiac: RRR - Respiratory Respiratory: No respiratory distress, Clear bilaterally - Abdomen Abdomen: Soft, Non distended, Other (Tender to palpation right upper quadrant. Positive Huntley sign. Otherwise normal abdominal exam) - Back Back: No CVA TTP, No spinal TTP - Derm Derm: Warm and dry, No rash - Extremities Extremities: No edema - Neuro Neuro: Alert and oriented X 3 - Psych Psych: Normal mood, Normal affect Results - Vitals Vitals: Vital Signs - 24 hr 03/30/19 03/30/19 03/30/19 11:39 13:41 15:11 Temperature 37.1 C Heart Rate 82 68 73 Respiratory 18 16 12 Rate Blood Pressure 140/80 H 130/75 131/85 H O2 Saturation 96 95 98 Oxygen O2 Source Room air - Labs Labs: Laboratory Tests 03/30/19 03/30/19 03/30/19 12:00 12:00 14:14 WBC 15.9 H RBC 5.28 Hgb 16.1 Hct 48.7 MCV 92.2 MCH 30.5 MCHC 33.1 RDW 12.5 Plt Count 213 MPV 9.5 Neut # (Auto) 14.8 H Lymph # (Auto) 0.3 L [place] # (Auto) 0.7 Eos # (Auto) 0.0 Baso # (Auto) 0.1 Absolute Nucleated RBC 0.00 Nucleated RBC % 0.0 Sodium 138 Potassium 3.8 Chloride 101 Carbon Dioxide 25 Anion Gap 12.0 BUN 27 H Creatinine 1.1 Estimated GFR (MDRD) 72 L Glucose 130 H Calcium 8.8 Total Bilirubin 0.6 AST 23 ALT 41 Alkaline Phosphatase 67 Total Protein 7.5 Albumin 4.6 Globulin 2.9 Albumin/Globulin Ratio 1.6 Lipase 20 L Urine Color YELLOW Urine Clarity CLEAR Urine pH 5.5 Ur Specific Lucinda >=1.030 H Urine Protein NEGATIVE Urine Glucose (UA) NEGATIVE Urine Ketones NEGATIVE Urine Occult Blood NEGATIVE Urine Nitrite NEGATIVE Urine Bilirubin NEGATIVE Urine Urobilinogen 0.2 (NORMAL) Ur Leukocyte Esterase NEGATIVE Ur Microscopic Review NOT INDICATED Urine Culture Comments NOT INDICATED - Rads (name of study) Right upper quadrant abdominal ultrasound Radiology: Prelim report reviewed, EMP read contemporaneously, See rad report (Normal. No cholelithiasis or cholecystitis. ) CT abd/pelvis Radiology: Prelim report reviewed, EMP read contemporaneously, See rad report (Multiple fluid distended small bowel loops seen in the abdomen and pelvis, nonspecific. Fluid seen in the ascending colon. No bowel wall thickening is seen. No definite evidence for bowel obstruction. ) PD MEDICAL DECISION MAKING - ED course Complexity details: reviewed results, re-evaluated patient, considered differential, d/w patient, d/w family ED course: Patient with abdominal pain of unclear etiology. Does feel slightly better after GI cocktail. Will place on medication for this. No evidence of cholecystitis. No evidence of perforation or abscess. Pain well controlled. Patient is well-appearing, nontoxic. Patient counseled regarding signs and symptoms for which I believe and urgent re-evaluation would be necessary. Patient with good understanding of and agreement to plan and is comfortable going home at this time This document was made in part using voice recognition software. While efforts are made to proofread this document, sound alike and grammatical errors may occur. Tolerating p.o. without difficulty here. Departure - Departure Disposition: 01 Home, Self Care Clinical Impression: Abdominal pain Qualifiers: Abdominal location: epigastric Qualified Code(s): R10.13 - Epigastric pain Condition: Good Instructions: ED Abdominal Pain Unkn Cause Follow-Up: Bethany Peacock COMPUTER FORENSICS INVESTIGATOR [Primary Care Provider] - Within 1 week Prescriptions: Esomeprazole Magnesium [Nexium] 40 mg PO DAILY #30 capsule. Oxycodone HCl/Acetaminophen [Percocet 5-325 mg Tablet] 1 - 2 each PO Q6H PRN #14 tablet PRN Reason: pain Sucralfate [Carafate] 1 gm PO ACHS #60 tablet Comments: The cause of your symptoms is unclear today. Return if you worsen. Your doctor may want to schedule you for an endoscopy to evaluate your stomach and see if you have ulcers. We will start you on medication for your stomach today. Do not drink alcohol or drive while on narcotic pain medicine. Note that many narcotic pain relievers also contain tylenol/acetaminophen. Please ensure that your total dose of acetaminophen from all sources does not exceed 3 grams (3000mg) per day. You may constipated on this medication, take a stool softener such as "Colace" twice a day while you are on it. Also recommend a dgni-rsl-jrhnqhe laxative such as senna or MiraLAX any day that you do not have a bowel movement. If you received narcotic pain medication in the emergency department, do not drive or operate machinery for the next 24 hours. Discharge Date/Time: 03/30/19 15:53
[2019-03-30 14:23] LABS: BILIRUBIN,URINE NEGATIVE (NEGATIVE); GLUCOSE, URINE (UA) NEGATIVE (NEGATIVE); KETONES,URINE (UA) NEGATIVE (NEGATIVE); LEUKOCYTE ESTERASE, URINE NEGATIVE (NEGATIVE); NITRITE,URINE NEGATIVE (NEGATIVE); OCCULT BLOOD,URINE NEGATIVE (NEGATIVE); PH,URINE 5.5 PH (5.0-7.5); PROTEIN,URINE NEGATIVE (NEGATIVE); UROBILINOGEN,URINE 0.2 (NORMAL) E.U./dL (NORMAL)
[2019-03-30 14:24] LABS: CLARITY,URINE CLEAR (CLEAR)
--- NOTE | 2019-03-30 14:25 | Ultrasound Report ---
Reason: RUQ abd pain Procedure Date: 03/30/2019 Accession Number: [id number] / [id number] Procedure: US - Abdomen Limited CPT Code: Final Report FULL RESULT: EXAM: ABDOMEN ULTRASOUND LIMITED, RUQ EXAM DATE: 03/30/2019 02:03 PM. CLINICAL HISTORY: Right upper quadrant pain. COMPARISON: None. TECHNIQUE: Real-time scanning was performed with static images obtained. FINDINGS: Liver: The liver is diffusely echogenic in appearance suggesting fibrofatty infiltration. No suspicious lesions or masses are identified. The liver measures 18.0 cm. Main portal vein flow: Hepatopetal. Gallbladder: Normal. No stones, wall thickening, or sonographic Huntley's sign. Biliary System: CBD measures 5 mm. No intrahepatic or extrahepatic ductal dilatation. Other: The right kidney appears normal in size with no hydronephrosis. IMPRESSION: Normal. No cholelithiasis or cholecystitis. RAD[facility]
[2019-03-30] MEDS ORDERED: IOVERSOL 320 100 ML VIAL IVP ONE ×2 (14:41→14:59)
[2019-03-30 15:13] VITALS: BP 131/85
--- NOTE | 2019-03-30 15:18 | CT Report ---
Reason: RUQ abd pain Procedure Date: 03/30/2019 Accession Number: [id number] / [id number] Procedure: CT - Abdomen/Pelvis W CPT Code: Final Report FULL RESULT: EXAM: CT ABDOMEN AND PELVIS EXAM DATE: 03/30/2019 02:58 PM. CLINICAL HISTORY: Right upper quadrant abdomen pain. COMPARISONS: ABDOMEN/PELVIS W/ 03/10/2016 2:46 AM. TECHNIQUE: Routine helical CT imaging was performed through the abdomen and pelvis. IV contrast: OPTI 320 100ML. Enteric contrast: No. Reconstructions: Coronal and sagittal. In accordance with CT protocol optimization, one or more of the following dose reduction techniques were utilized for this exam: automated exposure control, adjustment of mA and/or KV based on patient size, or use of iterative reconstructive technique. FINDINGS: Lung bases: No acute findings. Liver: Tiny nonspecific hypodensity seen laterally in the right hepatic lobe. Gallbladder: Unremarkable. Bile ducts: Unremarkable. Pancreas: Unremarkable. Spleen: Unremarkable. Adrenals: Unremarkable. Kidneys: Unremarkable. Bowel: Multiple fluid distended small bowel loops seen in the abdomen and pelvis, nonspecific. Fluid seen in the ascending colon. No bowel wall thickening is seen. The appendix is not seen. No free fluid or free air. No definite evidence for bowel obstruction. Pelvis: The bladder and remaining pelvic organs appear unremarkable. Vasculature: No acute findings. Bones: No acute bone findings. IMPRESSION: 1. Multiple fluid distended small bowel loops seen in the abdomen and pelvis, nonspecific. Fluid seen in the ascending colon. No bowel wall thickening is seen. No definite evidence for bowel obstruction. See above. RADIA
[2019-03-30] MEDS ORDERED: MAG HYDROX/AL HYDROX/SIMETH 30 ML UDC PO STA (15:35)
[2019-03-30] MEDS ORDERED: FAMOTIDINE 20 MG TABLET PO STA (15:35)
[2019-03-30] MEDS ORDERED: SUCRALFATE 1 GM/10 ML UDC PO STA (15:35)
== END 2019-03-30 15:53 | disposition home or self-care (01) ==
LOC: ED 11:32
DX: R10.13 Epigastric pain (principal); R11.2 Nausea with vomiting, unspecified; Z87.891 Personal history of nicotine dependence
CPT/HCPCS: 36415; 74177; 76705; 80053; 81003; 83690; 85025; 96361; 96374; 99284; 99285; A9270; J1170; Q9967; 81001; 87086

== ENCOUNTER 2019-05-06 07:02 | Emergency (ER) | payer BC ==
[2019-05-06 07:54] LABS: ALBUMIN 4.4 g/dL (3.2-5.5); ALBUMIN/GLOBULIN RATIO 1.5 (1.0-2.2); BILIRUBIN,TOTAL 0.5 mg/dL (0.2-1.0); CALCIUM 9.4 mg/dL (8.5-10.3); CREATININE 1.2 mg/dL (0.6-1.2); TOTAL PROTEIN 7.4 g/dL (6.7-8.2)
[2019-05-06 08:02] LABS: BASOPHILS % (AUTO) 0.4 %; EOSINOPHILS # (AUTO) 0.1 10^3/uL (0.0-0.7); EOSINOPHILS % (AUTO) 1.4 %; HGB - HEMOGLOBIN 15.9 g/dL (14.0-18.0); LYMPHOCYTES # (AUTO) 2.5 10^3/uL (1.5-3.5); LYMPHOCYTES % (AUTO) 29.7 %; MEAN CORPUSCULAR HEMOGLOBIN 29.1 pg (27.0-31.0); MEAN CORPUSCULAR HGB CONC 32.8 g/dL (32.0-36.0); MEAN CORPUSCULAR VOLUME 88.8 fL (80.0-94.0); MEAN PLATELET VOLUME 10.1 fL (7.4-11.4); MONOCYTES % (AUTO) 11.5 %; NEUTROPHILS # (AUTO) 4.7 10^3/uL (1.5-6.6); NEUTROPHILS % (AUTO) 56.6 %; PLT - PLATELET COUNT 244 10^3/uL (130-450); RED BLOOD COUNT 5.46 10^6/uL (4.70-6.10); RED CELL DISTRIBUTION WIDTH 12.3 % (12.0-15.0); WHITE BLOOD COUNT 8.4 x10^3/uL (4.8-10.8)
[2019-05-06] MEDS ORDERED: DEXAMETHASONE 10 MG/ML VIAL IVP STA (08:14)
--- NOTE | 2019-05-06 08:19 | XRAY Report ---
Reason: chest pain Procedure Date: 05/06/2019 Accession Number: [id number] / [id number] Procedure: XR - Chest 2 View X-Ray CPT Code: 16717 Final Report FULL RESULT: EXAM: CHEST RADIOGRAPHY EXAM DATE: 05/06/2019 08:03 AM. CLINICAL HISTORY: Chest pain. COMPARISON: CHEST 2 VIEW 02/13/2019 2:26 PM. TECHNIQUE: 2 views. FINDINGS: Lungs/Pleura: Hyperinflation with flattening of the diaphragm. No consolidations identified. Mediastinum: Heart and mediastinal contours are unremarkable. Other: None. IMPRESSION: Stable exam. No acute consolidations. RAD[facility]
[2019-05-06 08:50] LABS: BILIRUBIN,URINE NEGATIVE (NEGATIVE); GLUCOSE, URINE (UA) NEGATIVE (NEGATIVE); KETONES,URINE (UA) TRACE mg/dL (NEGATIVE); LEUKOCYTE ESTERASE, URINE NEGATIVE (NEGATIVE); NITRITE,URINE NEGATIVE (NEGATIVE); OCCULT BLOOD,URINE NEGATIVE (NEGATIVE); PH,URINE 6.5 PH (5.0-7.5); PROTEIN,URINE NEGATIVE (NEGATIVE); UROBILINOGEN,URINE 0.2 (NORMAL) E.U./dL (NORMAL)
[2019-05-06 08:53] LABS: CLARITY,URINE CLEAR (CLEAR)
--- NOTE | 2019-05-06 08:53 | ED Physician Documentation ---
PD HPI CHEST PAIN - Stated complaint Stated Complaint: CHEST PX - Chief complaint Chief Complaint: Cardiac - History obtained from History obtained from: Patient, Family - History of Present Illness Timing - onset: How many months ago (3) Timing - onset during: Exertion Timing - duration: Months (3) Timing - details: Abrupt onset, Still present, Waxing and waning Quality: Pressure, Sharp, Pain Location: Right chest Radiation: Abdominal Improved by: Rest Worsened by: Palpation, Position Associated symptoms: Cough. No: Shortness of air, Diaphoresis, Nausea, Vomiting, Feeling faint / dizzy, General Weakness, Palpitations Similar symptoms before: Diagnosis (RUQ pain) Recently seen: Clinic - Additional information Additional information: 49-year-old male reports an increase in pain in the right upper quadrant that he has had since January of last year. He states that he has persistence of pain is a sharp stabbing pain. He has had work-up of the right upper quadrant including ultrasound of the gallbladder MRI of the gallbladder he has been in to see the general surgeon and in to see the cementer machine joiner. He has been scoped last year for esophagitis and does have known inflammation of the esophagus and stomach. He has been taking omeprazole and intermittently taking sucralfate. He continues to have some problems with his esophagus. This past week he has developed a cough he is coughing frequently and this pain is worse with each cough. 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 He states that since then he has had this pain and it periodically is worse. He has been through significant work-up without an explanation. He states that when he goes to work now he may have some dull pain in the morning which is better by the evening. Sometimes he has a severe pain and this is what he has today.He has been his time he coughs. He has a lot of nasal congestion associated with this and he does not have a fever.He does report a bit of a sore throat. Review of Systems Constitutional: denies: Fever Eyes: denies: Decreased vision Ears: denies: Ear pain Nose: reports: Rhinorrhea / runny nose, Congestion Throat: reports: Sore throat Cardiac: reports: Chest pain / pressure. denies: Palpitations, Pedal edema, Calf pain Respiratory: reports: Cough. denies: Dyspnea GI: reports: Abdominal Pain, Diarrhea. denies: Nausea, Vomiting : denies: Dysuria, Frequency PD PAST MEDICAL HISTORY - Past Medical History Cardiovascular: None Respiratory: None Neuro: None GI: GERD, Hiatal hernia Psych: Anxiety - Past Surgical History Past Surgical History: Yes General: Hiatal hernia repair - Present Medications Home Medications: Ambulatory Orders Medication Instructions Recorded Confirmed Acetaminophen [Tylenol] 650 mg PO Q6H PRN #30 tab 02/13/19 05/06/19 Omeprazole 40 mg PO BID 02/13/19 05/06/19 Tizanidine HCl 4 mg PO TID PRN #25 capsule 02/13/19 05/06/19 Oxycodone HCl/Acetaminophen 1 - 2 each PO Q6H PRN #14 tablet 03/30/19 05/06/19 [Percocet 5-325 mg Tablet] Sucralfate [Carafate] 1 gm PO ACHS #60 tablet 03/30/19 05/06/19 Azithromycin [Zithromax] 250 mg PO DAILY #6 tablet 05/06/19 - Allergies Allergies/Adverse Reactions: Allergies Allergy/AdvReac Type Severity Reaction Status Date / Time No Known Drug Allergies Allergy Verified 05/06/19 07:14 - Social History Does the pt smoke?: No Smoking Status: Never smoker Does the pt drink ETOH?: No Does the pt have substance abuse?: No - Immunizations Immunizations are current?: No Immunizations: TDAP >10years/unknown - POLST Patient has POLST: No PD ED PE NORMAL - Vitals Vital signs reviewed: Yes (hypertensive mild ) - General General: Alert and oriented X 3, Well developed/nourished, Other (appears in pain with 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 ) - HEENT HEENT: Atraumatic, PERRL, EOMI, Other (Both TMs are erythematous with rounding of the landmarks. The pharynx is with mild erythema generalized.) - Neck Neck: Supple, no meningeal sign, No bony TTP - Cardiac Cardiac: RRR, No murmur - Respiratory Respiratory: No respiratory distress, Clear bilaterally - Abdomen Abdomen: Soft, Other (Specific right upper quadrant tenderness specifically under the ribs right over where the gallbladder is. 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, No motor deficit, No sensory deficit, Normal speech Eye Opening: Spontaneous Motor: Obeys Commands Verbal: Oriented GCS Score: 15 - Psych Psych: Normal mood, Normal affect Results - Vitals Vitals: Vital Signs - 24 hr 05/06/19 05/06/19 07:08 07:37 Temperature 36.5 C 36.8 C Heart Rate 91 65 Respiratory 18 12 Rate Blood Pressure 132/87 H 124/82 H O2 Saturation 97 Oxygen O2 Source Room air - EKG (time done) 0708 Rate: Rate (enter#) (74) Ischemia: ST elevation c/w repol Other comments: Other comments (early transition) Compare to prior EKG: Unchanged from prior EKG (SPT 02-13-2019 no significant change ) Computer interpretation: Agree with computer - Labs Labs: Laboratory Tests 05/06/19 05/06/19 05/06/19 07:10 07:10 07:10 WBC 8.4 RBC 5.46 Hgb 15.9 Hct 48.5 MCV 88.8 MCH 29.1 MCHC 32.8 RDW 12.3 Plt Count 244 MPV 10.1 Neut # (Auto) 4.7 Lymph # (Auto) 2.5 [place] # (Auto) 1.0 Eos # (Auto) 0.1 Baso # (Auto) 0.0 Absolute Nucleated RBC 0.00 Nucleated RBC % 0.0 Sodium 140 Potassium 3.8 Chloride 105 Carbon Dioxide 25 Anion Gap 10.0 BUN 20 Creatinine 1.2 Estimated GFR (MDRD) 65 L Glucose 118 H Lactic Acid Calcium 9.4 Total Bilirubin 0.5 AST 18 ALT 24 Alkaline Phosphatase 63 Troponin I High Sens 2.8 Total Protein 7.4 Albumin 4.4 Globulin 3.0 Albumin/Globulin Ratio 1.5 Lipase 32 Urine Color Urine Clarity Urine pH Ur Specific Kidder Urine Protein Urine Glucose (UA) Urine Ketones Urine Occult Blood Urine Nitrite Urine Bilirubin Urine Urobilinogen Ur Leukocyte Esterase Ur Microscopic Review Urine Culture Comments 05/06/19 05/06/19 08:13 08:22 WBC RBC Hgb Hct MCV MCH MCHC RDW Plt Count MPV Neut # (Auto) Lymph # (Auto) Sullivan # (Auto) Eos # (Auto) Baso # (Auto) Absolute Nucleated RBC Nucleated RBC % Sodium Potassium Chloride Carbon Dioxide Anion Gap BUN Creatinine Estimated GFR (MDRD) Glucose Lactic Acid 0.7 Calcium Total Bilirubin AST ALT Alkaline Phosphatase Troponin I High Sens Total Protein Albumin Globulin Albumin/Globulin Ratio Lipase Urine Color YELLOW Urine Clarity CLEAR Urine pH 6.5 Ur Specific Kidder 1.020 Urine Protein NEGATIVE Urine Glucose (UA) NEGATIVE Urine Ketones TRACE Urine Occult Blood NEGATIVE Urine Nitrite NEGATIVE Urine Bilirubin NEGATIVE Urine Urobilinogen 0.2 (NORMAL) Ur Leukocyte Esterase NEGATIVE Ur Microscopic Review NOT INDICATED Urine Culture Comments NOT INDICATED - Rads (name of study) chest Radiology: Prelim report reviewed (Impression: Stable exam. No acute consolidations.), EMP read indepedently, See rad report Procedures - Bedside sono Bedside sono by EMP: With use of bedside ultrasound the gallbladder is imaged and there are no obvious stones there is no thickening of the gallbladder wall no significant distention of the gallbladder and no pericholecystic fluid. The area in general is tender and reproducibly so. PD MEDICAL DECISION MAKING - ED course Complexity details: reviewed old records, reviewed results, re-evaluated patient, considered differential, d/w patient, d/w family ED course: 49-year-old male with chronic right upper quadrant pain appears to have musculoskeletal pain and by history this is consistent. He has had work-up of his gallbladder and today I am looking at his gallbladder with a bedside u ltrasound I see nothing wrong with it. I confirm that his pain is musculoskeletal in nature and I believe the reason for his visit today is the cough that he is developed and I believe the reason for the cough is the otitis media. Today he is given a dose of dexamethasone and we will place him on a short course of antibiotic. I have asked him to follow-up with his primary care doctor about physical therapy for the abdominal wall muscle injury. I have indicated to the patient that these cases of abdominal wall strain can be frustrating in that they tend to last much longer than usual muscle strain because of the nature of the use of the muscles for all movements and posture. The work-up of his chest pain included high-sensitivity troponin which was normal and electrocardiogram which shows ST elevations in the anterior leads that are been present previously --- all repolarization. Departure - Departure Disposition: 01 Home, Self Care Clinical Impression: Strain of abdominal muscle Qualifiers: Encounter type: initial encounter Qualified Code(s): S39.011A - Strain of muscle, fascia and tendon of abdomen, initial encounter Otitis media Qualifiers: Otitis media type: suppurative Chronicity: acute Laterality: bilateral Recurrence: non-recurrent Spontaneous tympanic membrane rupture: without spontaneous rupture Qualified Code(s): H66.003 - Acute suppurative otitis media without spontaneous rupture of ear drum, bilateral Condition: Stable Instructions: ED Otitis Media Acute Adult, ED Strain Abdominal Muscle Follow-Up: Bethany Peacock ARNP [Primary Care Provider] - Prescriptions: Azithromycin [Zithromax] 250 mg PO DAILY #6 tablet Comments: Today it appears the pain you are having in the right upper quadrant is related to a strain of your abdominal wall muscle. The cough you currently have from the ear infection appears to have bit irritated this. Abdominal wall muscle strain can take a long time to resolve. Follow-up with your primary care doctor to consider physical therapy.
[2019-05-06 09:27] VITALS: BP 123/73
== END 2019-05-06 09:33 | disposition home or self-care (01) ==
LOC: ED 07:02
DX: S39.011A Strain of muscle, fascia and tendon of abdomen, initial encounter (principal); X50.0XXA Overexertion from strenuous movement or load, initial encounter; Y93.89 Activity, other specified; Y92.818 Other transport vehicle as the place of occurrence of the external cause; H66.003 Acute suppurative otitis media without spontaneous rupture of ear drum, bilateral
CPT/HCPCS: 36415; 71046; 80053; 81001; 81003; 83605; 83690; 84484; 85025; 87086; 93005; 96374; 99284

== ENCOUNTER 2019-05-18 08:00 | Outpatient (CLI) | payer BC ==
[2019-05-18 12:27] LABS: BASOPHILS % (AUTO) 0.3 %; EOSINOPHILS # (AUTO) 0.1 10^3/uL (0.0-0.7); EOSINOPHILS % (AUTO) 1.2 %; HGB - HEMOGLOBIN 15.3 g/dL (14.0-18.0); LYMPHOCYTES # (AUTO) 2.3 10^3/uL (1.5-3.5); MEAN CORPUSCULAR HEMOGLOBIN 29.1 pg (27.0-31.0); MEAN CORPUSCULAR HGB CONC 32.4 g/dL (32.0-36.0); MEAN CORPUSCULAR VOLUME 89.7 fL (80.0-94.0); MEAN PLATELET VOLUME 10.5 fL (7.4-11.4); MONOCYTES # (AUTO) 0.8 10^3/uL (0.0-1.0); MONOCYTES % (AUTO) 10.3 %; NEUTROPHILS # (AUTO) 4.2 10^3/uL (1.5-6.6); NEUTROPHILS % (AUTO) 56.9 %; PLT - PLATELET COUNT 248 10^3/uL (130-450); RED BLOOD COUNT 5.26 10^6/uL (4.70-6.10); RED CELL DISTRIBUTION WIDTH 12.3 % (12.0-15.0); WHITE BLOOD COUNT 7.4 x10^3/uL (4.8-10.8)
[2019-05-18 13:34] LABS: ALBUMIN 4.4 g/dL (3.2-5.5); ALBUMIN/GLOBULIN RATIO 1.7 (1.0-2.2); BILIRUBIN,TOTAL 0.4 mg/dL (0.2-1.0); CALCIUM 9.3 mg/dL (8.5-10.3); CREATININE 0.9 mg/dL (0.6-1.2)
== END 2019-05-18 23:59 | disposition home or self-care (01) ==
LOC: LAB.N 08:00
PROVIDERS: ATTEND Nurse Practitioner Gerontology
DX: J06.9 Acute upper respiratory infection, unspecified (principal); R04.0 Epistaxis; R19.7 Diarrhea, unspecified
CPT/HCPCS: 36415; 80053; 81599; 83630; 85025; 87045; 87046; 87177; 87209; 87329; 87493

== ENCOUNTER 2019-05-19 08:00 | Outpatient (CLI) | payer BC | END 2019-05-19 23:59 | disposition home or self-care (01) | LOC: LAB.R 08:00 | PROVIDERS: ATTEND Nurse Practitioner Gerontology | DX: R19.7 Diarrhea, unspecified (principal) | CPT/HCPCS: 81599; 83630; 87045; 87046; 87177; 87209; 87493 ==

== ENCOUNTER 2019-05-26 17:49 | Emergency (ER) | payer BC ==
[2019-05-26] MEDS ORDERED: SODIUM CHLORIDE 0.9% 1,000 ML IV STA (20:22)
--- NOTE | 2019-05-26 20:23 | ED Physician Documentation ---
History of Present Illness - Stated complaint Stated Complaint: DIZZY, NAUSEA, LT SHOULDER PAIN - Chief complaint Chief Complaint: Abd Pain - Additonal information Additional information: This is a 49-year-old male who presents with several complaints. Patient states that he has been having diarrhea for several days and he had a stool test which was positive for an unknown bacteria, recently started clindamycin just in the last 24 hours. He states that he was feeling better on this he had about 3 episodes of diarrhea yesterday, but no blood in it, but then this morning he was cooking breakfast and he felt lightheaded as if he was about to pass out. Did not actually pass out. Did not have any chest pain at this time, but notes for last 2 days he has had some discomfort over his left lateral pectoralis rating to his left shoulder, which he had attributed to doing physical labor. He denies any shortness of breath, no hemoptysis. No palpitations, no syncope, no fever. He denies abdominal pain at this time. He no longer feels lightheaded, and feels quite well at the moment. He denies any personal history of cardiac issues, states that he has had cardiac work-ups in the emergency department for chest pain in the past which have been unremarkable. He saw a stave cutting supervisor in February at [facility], and had a reassuring work up at that time. Review of Systems Constitutional: denies: Fever Nose: denies: Rhinorrhea / runny nose Throat: denies: Dental pain / toothache Cardiac: reports: Chest pain / pressure. denies: Palpitations Respiratory: denies: Cough GI: reports: Nausea. denies: Vomiting : denies: Dysuria Skin: denies: Rash Neurologic: reports: Other (lightheadedness). denies: Generalized weakness Immunocompromised: denies: Immunocompromised PD PAST MEDICAL HISTORY - Past Medical History Past Medical History: Yes Cardiovascular: None Respiratory: None Neuro: None Endocrine/Autoimmune: None GI: GERD, Hiatal hernia : None HEENT: None Psych: Anxiety Musculoskeletal: None Derm: None - Past Surgical History Past Surgical History: Yes General: Hiatal hernia repair - Present Medications Home Medications: Ambulatory Orders Medication Instructions Recorded Confirmed Acetaminophen [Tylenol] 650 mg PO Q6H PRN #30 tab 02/13/19 05/06/19 Omeprazole 40 mg PO BID 02/13/19 05/06/19 Tizanidine HCl 4 mg PO TID PRN #25 capsule 02/13/19 05/06/19 Oxycodone HCl/Acetaminophen 1 - 2 each PO Q6H PRN #14 tablet 03/30/19 05/06/19 [Percocet 5-325 mg Tablet] Sucralfate [Carafate] 1 gm PO ACHS #60 tablet 03/30/19 05/06/19 Azithromycin [Zithromax] 250 mg PO DAILY #6 tablet 05/06/19 - Allergies Allergies/Adverse Reactions: Allergies Allergy/AdvReac Type Severity Reaction Status Date / Time No Known Drug Allergies Allergy Verified 05/26/19 18:01 - Social History Does the pt smoke?: No Smoking Status: Never smoker Does the pt drink ETOH?: No Does the pt have substance abuse?: No - Immunizations Immunizations are current?: No Immunizations: TDAP >10years/unknown - POLST Patient has POLST: No PD ED PE NORMAL - Vitals Vital signs reviewed: Yes - General General: Alert and oriented X 3, No acute distress - HEENT HEENT: PERRL - Neck Neck: Supple, no meningeal sign - Cardiac Cardiac: RRR, No murmur - Respiratory Respiratory: No respiratory distress, Clear bilaterally - Abdomen Abdomen: Normal bowel sounds, Soft, Non tender, Non distended - Derm Derm: Warm and dry - Extremities Extremities: No deformity - Neuro Neuro: Alert and oriented X 3, concert pianist 2-12 intact, No motor deficit, No sensory deficit, Normal speech - Psych Psych: Normal mood, Normal affect Results - Vitals Vitals: Oxygen O2 Source Room air - EKG (time done) 20:27 Other comments: Other comments (Rate 68, rhythm sinus, there is concave up ST depression in the anterior leads consistent with ROHITH, and unchanged from prior EKGs. Slight saddleback appearance of V2, unchanged from past EKG.) - Labs Labs: Laboratory Tests 05/26/19 05/26/19 05/26/19 20:28 20:28 20:28 WBC 8.1 RBC 5.01 Hgb 15.3 Hct 45.6 MCV 91.0 MCH 30.5 MCHC 33.6 RDW 12.5 Plt Count 229 MPV 9.6 Neut # (Auto) 5.5 Lymph # (Auto) 1.8 [place] # (Auto) 0.7 Eos # (Auto) 0.1 Baso # (Auto) 0.0 Absolute Nucleated RBC 0.00 Nucleated RBC % 0.0 Sodium 138 Potassium 4.2 Chloride 104 Carbon Dioxide 26 Anion Gap 8.0 BUN 18 Creatinine 1.0 Estimated GFR (MDRD) 80 L Glucose 100 Calcium 9.7 Total Bilirubin 0.2 AST 24 ALT 53 Alkaline Phosphatase 62 Troponin I High Sens < 2.3 L Total Protein 7.2 Albumin 4.5 Globulin 2.7 Albumin/Globulin Ratio 1.7 Lipase 28 PD MEDICAL DECISION MAKING - ED course Complexity details: considered differential (Dehydration, medication side- effect, ACS, dysrhtyhmia, MSK pain) ED course: Pt is very well-appearing on arrival. His lungs are clear, he has no cough, O2 saturation is normal, no shortness of breath, making pulmonary pathology unlikely. He is PERC negative and PE extremely unlikely. He has seen a car diologist recently and has very few risk factors for ACS, here his EKG is unchanged from prior showing ROHITH and his HS troponin is negative. He has some reproducible tenderness over the left lateral pectoralis and this may be musculoskeletal, but I discussed the need for continued PCP and cardiology follow up. Regarding his light-headedness, this is likely related to his diarrhea causing hypovolemia, he feels much better after IV fluids here and BP is unremarkable and he is not feeling light-headed and his shoulder discomfort is also resolving. I do not see any signs of adverse reaction to the antibiotic, he does have diarrhea but this started prior to his abx use and apparently the abx is for an organism found in stool culture. I recommended continued PCP follow up on this. He does have a slight saddle-back pattern to V2, which could be seen in type 3 Brugada, but he has no history of syncope, no family history of sudden , no palpitations, no history of tachydysrhymia, I have a very low suspicion for Brugada syndrome at this time. He appears appropriate for outpatient follow up. He is symptom-free, feeling well and after discussing return precautions pt was discharged home in the care of family. Addendum 05/28 12:30PM I called pt on 05/28 to check on how he is doing, he states that he has had no lightheadedness, syncope, and is overall feeling much better. He describes some epigastric burning he had today which sounds quite benign, and he says when he had similar symptoms in the past they improved with omeprazole. I reviewed return precautions with him especially syncope, and once again discussed follow up with his stave cutting supervisor on his EKG and symptoms. Pt agrees and was appreciative for the call. Departure - Departure Disposition: 01 Home, Self Care Clinical Impression: Pre-syncope Diarrhea Qualifiers: Diarrhea type: unspecified type Qualified Code(s): R19.7 - Diarrhea, unspecified Condition: Good Instructions: ED Near Syncope Unkn Follow-Up: Bethany Peacock ARNP [Primary Care Provider] - Within 1 week Comments: I do not see an obvious emergent cause of your symptoms on your labs today. Please drink plenty of fluids, and follow-up with your primary care provider. If you have any new or worsening symptoms such as increasing chest pain, passing out, difficulty breathing, return to the emergency department. I think you should continue taking your antibiotic for now, if you are having further problems that may be side effects, it would be reasonable to discuss with your primary care provider whether you should stop or change the antibiotic. Discharge Date/Time: 05/26/19 22:16
[2019-05-26 20:34] LABS: BASOPHILS % (AUTO) 0.5 %; EOSINOPHILS # (AUTO) 0.1 10^3/uL (0.0-0.7); EOSINOPHILS % (AUTO) 0.9 %; HGB - HEMOGLOBIN 15.3 g/dL (14.0-18.0); LYMPHOCYTES # (AUTO) 1.8 10^3/uL (1.5-3.5); LYMPHOCYTES % (AUTO) 21.6 %; MEAN CORPUSCULAR HEMOGLOBIN 30.5 pg (27.0-31.0); MEAN CORPUSCULAR HGB CONC 33.6 g/dL (32.0-36.0); MEAN PLATELET VOLUME 9.6 fL (7.4-11.4); MONOCYTES # (AUTO) 0.7 10^3/uL (0.0-1.0); MONOCYTES % (AUTO) 8.7 %; NEUTROPHILS # (AUTO) 5.5 10^3/uL (1.5-6.6); NEUTROPHILS % (AUTO) 67.9 %; PLT - PLATELET COUNT 229 10^3/uL (130-450); RED BLOOD COUNT 5.01 10^6/uL (4.70-6.10); RED CELL DISTRIBUTION WIDTH 12.5 % (12.0-15.0); WHITE BLOOD COUNT 8.1 x10^3/uL (4.8-10.8)
[2019-05-26 20:45] LABS: ALBUMIN 4.5 g/dL (3.2-5.5); ALBUMIN/GLOBULIN RATIO 1.7 (1.0-2.2); BILIRUBIN,TOTAL 0.2 mg/dL (0.2-1.0); CALCIUM 9.7 mg/dL (8.5-10.3); TOTAL PROTEIN 7.2 g/dL (6.7-8.2)
[2019-05-26 22:02] VITALS: BP 127/91
== END 2019-05-26 22:16 | disposition home or self-care (01) ==
LOC: ED 17:49
DX: R55 Syncope and collapse (principal); R19.7 Diarrhea, unspecified; R94.31 Abnormal electrocardiogram [ECG] [EKG]; K21.9 Gastro-esophageal reflux disease without esophagitis; M25.512 Pain in left shoulder
CPT/HCPCS: 36415; 80053; 83690; 84484; 85025; 93005; 96360; 99284

== ENCOUNTER 2019-06-03 07:00 | Outpatient (CLI) | payer BC ==
[2019-06-04 14:29] LABS: H. PYLORIS ANTIGEN STL NEGATIVE (Negative)
== END 2019-06-03 23:59 | disposition home or self-care (01) ==
LOC: LAB.R 07:00
PROVIDERS: ATTEND Family Medicine
DX: Z86.19 Personal history of other infectious and parasitic diseases (principal)
CPT/HCPCS: 81599; 82274; 83630; 87045; 87046; 87177; 87209; 87338

== ENCOUNTER 2019-06-24 20:25 | Emergency (ER) | payer BC ==
[2019-06-24] MEDS ORDERED: ALPRAZolam 0.25 MG TABLET PO STA (20:58)
--- NOTE | 2019-06-24 21:03 | ED Physician Documentation ---
PD HPI CHEST PAIN - Stated complaint Stated Complaint: TIRED,FAINT - Chief complaint Chief Complaint: Cardiac - History obtained from History obtained from: Patient (49 yo M presents with left chest pressure for several weeks. Pressure is constant, localized to left chest w/o radiation, not a/w activity. He denies fever, chills, cough or URI sx, dyspnea, abd pain, n/v/d, reflux, fatigue, dizziness, palpitations, diaphoresis. Pt has been seen for the same on several occasions in the past both here and w/ his PCP. He states he's been treated for gastritis and is not taking any spicy or bothersome foods and he continues to have sx. He has been treated for muscle spasms w/ tinizadine which has been helpful but he doesn't want to take meds daily to get rid of this pressure. He has multiple cardiac evaluations in the past which have been negative. He endorses stress the last few weeks and admits to general anxiety.) Review of Systems Constitutional: reports: Reviewed and negative Eyes: reports: Reviewed and negative Ears: reports: Reviewed and negative Nose: reports: Reviewed and negative Throat: reports: Reviewed and negative Cardiac: reports: Chest pain / pressure. denies: Palpitations, Pedal edema, Calf pain Respiratory: denies: Dyspnea, Cough, Hemoptysis, Wheezing GI: denies: Abdominal Pain, Abdominal Swelling, Nausea, Vomiting, Constipation, Diarrhea, Hematemesis, Bloody / black stool : reports: Reviewed and negative Skin: reports: Reviewed and negative Musculoskeletal: reports: Pain with weight bearing Neurologic: reports: Generalized weakness. denies: Focal weakness, Numbness, Difficulty speaking, Near syncope, Syncope, Seizure, Confused, Altered mental status, Unresponsive, Headache, Head injury, LOC PD PAST MEDICAL HISTORY - Past Medical History Past Medical History: Yes Cardiovascular: None Respiratory: None Neuro: None Endocrine/Autoimmune: None GI: GERD, Hiatal hernia : None HEENT: None Psych: Anxiety Musculoskeletal: None Derm: None - Past Surgical History Past Surgical History: Yes General: Hiatal hernia repair - Present Medications Home Medications: Ambulatory Orders Medication Instructions Recorded Confirmed Acetaminophen [Tylenol] 650 mg PO Q6H PRN #30 tab 02/13/19 05/06/19 Omeprazole 40 mg PO BID 02/13/19 05/06/19 Tizanidine HCl 4 mg PO TID PRN #25 capsule 02/13/19 05/06/19 Sucralfate [Carafate] 1 gm PO ACHS #60 tablet 03/30/19 05/06/19 Alprazolam [Xanax] 0.25 mg PO Q12H PRN #10 tablet 06/24/19 - Allergies Allergies/Adverse Reactions: Allergies Allergy/AdvReac Type Severity Reaction Status Date / Time No Known Drug Allergies Allergy Verified 06/24/19 20:40 - Social History Does the pt smoke?: No Smoking Status: Never smoker Does the pt drink ETOH?: No Does the pt have substance abuse?: No - Immunizations Immunizations are current?: No Immunizations: TDAP >10years/unknown - POLST Patient has POLST: No PD ED PE NORMAL - Vitals Vital signs reviewed: Yes - General General: Alert and oriented X 3, No acute distress, Well developed/nourished - HEENT HEENT: Atraumatic, PERRL, EOMI - Neck Neck: Supple, no meningeal sign, No JVD - Cardiac Cardiac: RRR, No murmur, No gallop, No rub, Strong equal pulses - Respiratory Respiratory: No respiratory distress, Clear bilaterally - Abdomen Abdomen: Normal bowel sounds, Soft, Non tender, Non distended - Derm Derm: Normal color, Warm and dry, No rash - Extremities Extremities: No deformity, No tenderness to palpate, Normal ROM s pain, No edema, No calf tenderness / cord - Neuro Neuro: Alert and oriented X 3 Eye Opening: Spontaneous Motor: Obeys Commands Verbal: Oriented GCS Score: 15 - Psych Psych: Normal mood, Normal affect, Other (pt is animated, mildly anxious appearing) Results - Vitals Vitals: Vital Signs - 24 hr 06/24/19 06/24/19 06/24/19 20:40 20:44 21:45 Temperature 36.5 C Heart Rate 80 88 67 Respiratory 20 18 16 Rate Blood Pressure 152/93 H 152/93 H 132/81 H O2 Saturation 96 95 94 Oxygen O2 Source Room air - Labs Labs: Laboratory Tests 06/24/19 06/24/19 06/24/19 21:04 21:04 21:04 WBC 8.9 RBC 4.90 Hgb 15.0 Hct 44.4 MCV 90.6 MCH 30.6 MCHC 33.8 RDW 12.5 Plt Count 254 MPV 9.5 Neut # (Auto) 5.6 Lymph # (Auto) 2.3 [place] # (Auto) 0.9 Eos # (Auto) 0.1 Baso # (Auto) 0.0 Absolute Nucleated RBC 0.00 Nucleated RBC % 0.0 Sodium 136 Potassium 4.1 Chloride 103 Carbon Dioxide 27 Anion Gap 6.0 BUN 26 H Creatinine 0.9 Estimated GFR (MDRD) 90 Glucose 91 Calcium 9.5 Troponin I High Sens 2.4 PD MEDICAL DECISION MAKING - ED course Complexity details: reviewed old records, reviewed results, re-evaluated patient, considered differential, d/w patient ED course: 49 yo M presented with several weeks of left chest pressure. There were no acute st/t changes on the ekg and his trop was negative. His sx are not c/w unstable angina. He's had multiple cardiac w/u in the past and has been treated for gastritis, muscle spasms, anxiety, and other non-cardiac pain. Tonight I suspect stress and anxiety induced left chest pressure. He had substantial relief w/ a small dose of xanax. I discussed these findings w/ pt and advised him to work on stress and anxiety reduction. I will give him a short-term script of low dose xanax po to help w/ anxiety attacks and have advised to use only when absolutely necessary. Cautioned on side effects. Pt to fup with PCP for anxiety and non- cardiac chest pain. Departure - Departure Disposition: 01 Home, Self Care Clinical Impression: Atypical chest pain, Chest wall pain, Anxiety Condition: Good Instructions: ED Stress React, ED Chest Pain NonCardiac Prescriptions: Alprazolam [Xanax] 0.25 mg PO Q12H PRN #10 tablet PRN Reason: Anxiety
[2019-06-24 21:18] LABS: BASOPHILS % (AUTO) 0.3 %; EOSINOPHILS # (AUTO) 0.1 10^3/uL (0.0-0.7); LYMPHOCYTES # (AUTO) 2.3 10^3/uL (1.5-3.5); LYMPHOCYTES % (AUTO) 26.1 %; MEAN CORPUSCULAR HEMOGLOBIN 30.6 pg (27.0-31.0); MEAN CORPUSCULAR HGB CONC 33.8 g/dL (32.0-36.0); MEAN CORPUSCULAR VOLUME 90.6 fL (80.0-94.0); MEAN PLATELET VOLUME 9.5 fL (7.4-11.4); MONOCYTES # (AUTO) 0.9 10^3/uL (0.0-1.0); MONOCYTES % (AUTO) 9.6 %; NEUTROPHILS # (AUTO) 5.6 10^3/uL (1.5-6.6); NEUTROPHILS % (AUTO) 62.7 %; PLT - PLATELET COUNT 254 10^3/uL (130-450); RED CELL DISTRIBUTION WIDTH 12.5 % (12.0-15.0); WHITE BLOOD COUNT 8.9 x10^3/uL (4.8-10.8)
[2019-06-24 21:19] LABS: CALCIUM 9.5 mg/dL (8.5-10.3); CREATININE 0.9 mg/dL (0.6-1.2)
[2019-06-24 22:06] VITALS: BP 129/86
== END 2019-06-24 22:06 | disposition home or self-care (01) ==
LOC: ED 20:25
DX: R07.89 Other chest pain (principal); F41.9 Anxiety disorder, unspecified
CPT/HCPCS: 36415; 80048; 84484; 85025; 93005; 99283; 99284; A9270

== ENCOUNTER 2020-04-28 16:09 | Outpatient (CLI) | payer BC | END 2020-04-28 16:10 | disposition home or self-care (01) | LOC: LAB.N 16:09 | PROVIDERS: ATTEND Nurse Practitioner Gerontology | DX: R19.7 Diarrhea, unspecified (principal) ==

== ENCOUNTER 2020-04-29 07:00 | Outpatient (CLI) | payer BC | END 2020-04-29 23:59 | disposition home or self-care (01) | LOC: LAB.R 07:00 | PROVIDERS: ATTEND Nurse Practitioner Gerontology | DX: R19.7 Diarrhea, unspecified (principal) | CPT/HCPCS: 81599; 83630; 87045; 87046; 87427; 87493 ==

== ENCOUNTER 2020-11-04 10:39 | Outpatient (CLI) | payer BC | END 2020-11-04 10:40 | disposition EMS.NT | LOC: EMS 10:39 | DX: R42 Dizziness and giddiness (principal) ==

== ENCOUNTER 2021-02-14 08:00 | Outpatient (CLI) | payer BC | END 2021-02-14 23:59 | LOC: LAB.N 08:00 | PROVIDERS: ATTEND Family Medicine | DX: R07.0 Pain in throat (principal); Z20.822 Contact with and (suspected) exposure to COVID-19 | CPT/HCPCS: 87070 ==